=== PATIENT | female | born 1950 | race Two or more races ===

== ENCOUNTER 2022-12-24 16:30 | Emergency (ER) | payer BC, OTHER ==
[~2022-12-24] VITALS: Ht 170.2 cm; Wt 91.9 kg
[2022-12-24 17:07] VITALS: BP 126/68
== END 2022-12-24 18:52 | disposition home or self-care (01) ==
LOC: ER 16:30
DX: S80.02XA Contusion of left knee, initial encounter (principal); M25.462 Effusion, left knee; W18.39XA Other fall on same level, initial encounter; Y93.89 Activity, other specified; Y92.89 Other specified places as the place of occurrence of the external cause; Y99.8 Other external cause status
CPT/HCPCS: 73562